=== PATIENT | male | born 1970 | race Caucasian/White ===

== ENCOUNTER 2024-10-19 06:22 | Day surgery (SDC) | payer BC, SELFPAY | END 2024-10-19 14:29 | disposition home or self-care (01) | LOC: GI 06:22 | PROVIDERS: ATTENDING PHYSICIAN Internal Medicine Gastroenterology | DX: Z12.11 Encounter for screening for malignant neoplasm of colon (principal); D12.2 Benign neoplasm of ascending colon; D12.4 Benign neoplasm of descending colon; D12.5 Benign neoplasm of sigmoid colon; K63.89 Other specified diseases of intestine; K62.1 Rectal polyp; K64.8 Other hemorrhoids; Z86.0101 Personal history of adenomatous and serrated colon polyps | CPT/HCPCS: 45385; 45380; 88305 ==